=== PATIENT | female | born 1970 | race Caucasian/White ===

== ENCOUNTER 2021-01-18 12:12 | Outpatient (CLI) | payer OTHER, SELFPAY ==
--- NOTE | ~2021-01-18 | MR_ITS ---
EXAMINATION: MR shoulder RT wo con DATE: 01/18/2021 12:59 INDICATION: Right shoulder pain TECHNIQUE: Magnetic resonance imaging (MRI) of the right shoulder was performed without intravenous c ontrast. Sequences included axial PD-weighted FS FSE, coronal oblique PD-weighted FS FSE, coronal obl ique T2-weighted FS FSE, sagittal PD-weighted FS FSE, and sagittal T1-weighted SE. COMPARISON: None. FINDINGS: Coracoacromial arch: The acromion undersurface is minimally curved in morphology (type I-II). Is postoperative changes wit h multiple foci of susceptibility artifact along the acromion and the lateral deltoid muscle suggesti ng possible acromioplasty. There has also been a distal right clavicle resection. Rotator cuff: There are suture anchors along the greater tuberosity associated with likely suture anchor tracks for prior rotator cuff repair along the footplates of the supraspinatus and infraspinatus tendons. Mild to moderate tendinopathy of the distal supraspinatus and infraspinatus tendons. There is attenuation of the conjoined portion of the tendon consistent with partial tear or potentially repaired tear. No discrete tear margin or fluid signal intensity tear defect. The teres minor tendon is normal. Mild hillman bscapularis tendinopathy with attenuation distal tendon consistent with partial thickness tear but wi thout discrete articular bursal sided tear defect. Mild to moderate fatty atrophy of the subscapulari s muscle belly. Biceps tendon, glenoid labrum and glenohumeral cartilage: Complete tear of the long head biceps tendon with severe tendinopathy and fraying extending 2 cm dist ally from the distal tear margin which is retracted below the level of the intertubercular groove. Th e frayed proximal tear margin is located along side the anterosuperior labrum at the rotator cuff int erval. Small shallow tear along the articular side of the 9:00-10:00 position of the posterior labrum . Remainder of the labrum is normal. Mild partial-thickness cartilage with minimal chondral surface r egularity at the humeral head. Cartilage is relatively preserved. Fluid: Physiologic amount of fluid in the glenohumeral joint and biceps tendon sheath. No loose osteochondra l bodies. Small amount of fluid in the subacromial/subdeltoid bursa consistent with mild bursitis. Bones: Bone alignment is normal. Normal marrow signal with no fracture or pathologic marrow replacing proces s. IMPRESSION: 1. Postoperative change of prior rotator cuff repair, distal clavicle resection and possible acromiop lasty. 2. Small region of attenuation of the conjoined portion of the distal supraspinatus and more diffuse attenuation of the distal subscapularis tendon, both consistent with partial tears or potentially rep aired tears. No discrete fluid signal intensity tear defect or frankly discontiguous torn tendon vicente ins appreciated. 3. Full-thickness tear of the long head biceps tendon with severe tendinopathy and fraying of the dis lauren retracted tear margin. 4. Mild glenohumeral osteoarthritis with small partial-thickness tear at the posterior glenoid labrum . 5. Mild subacromial/subdeltoid bursitis. Reviewed, dictated and finalized at location A. IMPRESSION: 1. Postoperative change of prior rotator cuff repair, distal clavicle resection and possible acromioplasty. 2. Small region of attenuation of the conjoined portion of the distal supraspin atus and more diffuse attenuation of the distal subscapularis tendon, both cons istent with partial tears or potentially repaired tears. No discrete fluid sign al intensity tear defect or frankly discontiguous torn tendon margins appreciat ed. 3. Full-thickness tear of the long head biceps tendon with severe tendinopathy and fraying of th
== END 2021-01-18 12:13 ==
PROVIDERS: PCP Family Medicine; Visit Provider Orthopaedic Surgery
DX: M75.51 Bursitis of right shoulder (principal); M19.011 Primary osteoarthritis, right shoulder
CPT/HCPCS: 73221

== ENCOUNTER 2021-02-25 02:16 | Day surgery (SDC) | payer OTHER, SELFPAY ==
[2021-02-15 15:07] VITALS: BMI 20.7
[2021-02-25] VITALS (8 sets, daily range): BP systolic 99–123; BP diastolic 68–78; PULSE 67–106; RESP 14–18; TEMP 36.1–36.7; O2SAT 99–100
--- NOTE | 2021-02-25 08:25 | WPDANESPNB ---
Anes - Peripheral Nerve Block Date/Time: 02/25/21 08:25 I have discussed with the patient/family/POA the placement of a peripheral nerve block for post-operative pain management, including associated risks, benefits, complications, and side effects. Alternative methods of post-operative analgesia were detailed. Questions were solicited and answers provided to the satisfaction of the patient/family/POA. Time-Out: A pre-procedural Time-Out was completed immediately before starting the procedure and confirmed: Patient Identification, Site, Procedure, Patient Position and the Availability of Requisite Equipment. Clinical Indications: Acute post-operative pain management requested by the operative surgeon. Nerve Block Insertion Note Anes-nerve block: supraclavicular right Patient position: supine Skin prep: chlorhexidine Needle: 22 gauge, stimulating, insulated echogenic needle. Needle length: 80 mm Technique: ultrasound (in plane) Injectate: bupivacaine 0.5% with epi 5 mcg/ml (20cc) Observations: tolerated well Complications: none Procedure start time:: 1230 Procedure end time:: 123
--- NOTE | 2021-02-25 08:25 | WPDANESEPPF ---
Anes - Initial Pre Proc Eval Procedure: Operation Date: 02/25/21 13:00 Proposed Procedures p Right Shoulder Arthroscopy with Decompression Proceed as Indicated - Sanchez Goel MD Date/Time: 02/25/21 08:25 Surgeon: Sanchez Goel MD Pre Op Diagnosis: right shoulder pain impingement Patient Data Age: 50 Gender: F Height: 1.52 m Weight: 48.08 kg Allergies Allergy/AdvReac Type Severity Reaction Status Date / Time No Known Allergies Allergy Verified 02/15/21 15:05 Home Medications Medication Instructions Recorded Confirmed Type alprazolam 0.5 mg tablet 0.5 mg PO DAILY PRN 09/23/19 02/25/21 History adalimumab [Humira Pen] 40 mg SUBCUT ONCE 02/15/21 02/25/21 History Patient hx anesthesia problems: none Family hx anesthesia problems: none Results Review: All pre-operative results and documents have been reviewed as part of the pre-operative evaluation. [facility] Past Medical History Medical History (Updated 02/25/21 @ 08:27 by Juan Levine MD) Arthritis Crohn's disease of colon Subacromial impingement of right shoulder Tobacco abuse Surgical History Surgical History H/O shoulder surgery left shoulder 09/09/18 History of repair of right rotator cuff Family History Family History Father Acute myocardial infarction Social History Social History Smoking packs per day: 0.5 Smoking cigarettes per day: 10.0 Years smoked: 10 Smoking pack-years: 5.00 Smoking status: Current every day smoker Tobacco type: cigarettes Alcohol intake: never Substance use: never Substance use type: does not use Living arrangements: with family Spiritual care concerns: No Anes - Eval Final PreProcedure Day of Procedure 02/25/21 08:25 Patient weight: normal Heart: regular rate and rhythm Lungs: clear to auscultation and normal air movement Airway: Mallampati scale class II Neurological: alert and oriented Last oral intake: >/= 8 hours ASA classification: III Emergent: no Anesthetic plan: proceed Anesthesia type and monitoring: general ETT Results Review: All pre-operative results and documents have been reviewed as part of the pre-operative evaluation. Informed Consent: The patient's anesthetic plan and its attendant risks and benefits were discussed with the patient/family/POA. Questions were solicited and answers provided to the satisfaction of the patient/family/POA.
[2021-02-25] MEDS: ACETAMINOPHEN 500 MG TABLET 1000 MG PO (11:22)
[2021-02-25] MEDS: LACTATED RINGERS 1,000 ML 30 ML IV CONT ×2 (11:28→14:10)
[2021-02-25] MEDS: KETOROLAC 15 MG/ML VIAL (*BKC) IV PUSH (11:33)
--- NOTE | 2021-02-25 12:29 | WPDHPUPDATE1 ---
History and Physical Update Update Date/Time: 02/25/21 12:29 History and Physical has been reviewed, including an updated exam of the patient. There are NO changes in the patient's condition. Risks, benefits, and alternatives have been discussed and questions answered. Patient agrees to proceed with procedure.
[2021-02-25] MEDS: ceFAZolin 2 GM/D5W 50 ML 2 GM/50 ML BAG IVPB (12:47)
[2021-02-25] MEDS: EPINEPHrine INJ 1 MG/10 ML SYRINGE XX (13:37)
--- NOTE | 2021-02-25 14:17 | P.OP_ITS ---
Procedure Note - Detailed Date of Procedure 02/25/21 Pre-op Diagnosis right shoulder pain impingement Post-op Diagnosis same Procedure Performed Right shoulder arthroscopy with intra-articular and subacromial debridement Surgeon Sanchez Goel MD [employer] Dayanna Wu Anesthesia general and regional Description of Procedure The patient was identified and proper site identified. In the preop holding area the anesthesia team performed a right upper extremity block. She was then taken to the operating, transferred to the OR table and after general anesthetic induction and intubation placed into the semi beach chair position in the usual manner for a right shoulder procedure. Her head was secured taking care to neither rotate or extend the head neck. The right upper extremity was prepped and draped free in the usual sterile fashion. 30 cc of 1:100,000 epinephrine and saline solution was injected into the subacromial space. 10 cc of 0.25% Marcaine and epinephrine solution was injected in the area of the portals. Posterior portal was established and under direct visualization anterior outflow was created. The articular cartilage of the humeral head and glenoid was in fairly decent shape. The cuff repair was inspected and noted to have a good attachment to the greater tuberosity. He has obvious tearing of the biceps with frayed stump sitting inside the shoulder joint. This was debrided back to allow for better visualization. Remainder of the cuff was in decent shape. Glenoid labrum was in fairly good shape. Minimal synovitis inside the shoulder joint. Next the scope equipment was removed from the shoulder and placed in the subacromial space. Lateral working portal was created. There was quite a bit of scar tissue which was debrided to allow for visualization. The undersurface acromion was cleared of debris and then a rasp used to debulk the lateral acromial spur. The cuff repair appeared to be intact from the bursal side as well. Arthrocare Wand was used for hemostasis. The entire surgical area was irrigated with saline solution and the equipment was removed. Portals were closed with three 0 nylon suture and sterile dressings applied. He tolerated the procedure well. She was awakened, extubated and taken to recovery area in stable condition. There were no known intraoperative complications. Estimated blood loss was negligible. She received perioperative antibiotics. Estimated Blood Loss 5 Drains No Packing No Pathology none sent Complications No immediate complications Condition stable Disposition PACU
== END 2021-02-25 16:00 | disposition home or self-care (01) ==
PROVIDERS: PCP Family Medicine; Visit Provider Orthopaedic Surgery
PROC: (CPT 29805; principal; 2021-02-25 13:00)
DX: M75.41 Impingement syndrome of right shoulder (principal); M19.90 Unspecified osteoarthritis, unspecified site; K50.90 Crohn's disease, unspecified, without complications; F17.210 Nicotine dependence, cigarettes, uncomplicated; M65.811 Other synovitis and tenosynovitis, right shoulder; G89.18 Other acute postprocedural pain
CPT/HCPCS: 29822; 64415; A4565; A9270; J0171; J0690; J1100; J1885; J2250; J2405; J2704; J2710; J3010; J7120

== ENCOUNTER → 2023-01-15 09:11 | Outpatient (CLI) | payer OTHER, SELFPAY ==
--- NOTE | ~2023-01-15 | CT_ITS ---
EXAMINATION: CT cervical spine wo con DATE: 01/15/2023 09:24 INDICATION: Cervical myelopathy. TECHNIQUE: Computed tomography (CT) of the cervical spine was performed without intravenous contrast. Automated exposure control and iterative reconstruction technique were employed. The dose-length pro duct was 85.01 mGy-cm. COMPARISON: None FINDINGS: There is mild scarring at the lung apices. There is 4 degrees dextrocurvature of cervical s pine. There is kyphosis of cervical spine. There is 2 mm anterolisthesis of C3 on C4 and 2 mm retroli sthesis of C6 on C7. Vertebral body heights are normal. There is moderately decreased disc height at C4-C5 and C5-C6 and severely decreased disc height at C6-C7. The following disc levels are specifical ly discussed: C2-C3: There is no uncovertebral joint osteoarthritis. There is ankylosis of the facet joints with mi ld hypertrophy. There is no neural foraminal stenosis. There is no central canal stenosis. C3-C4: There is mild bilateral uncovertebral joint osteoarthritis. There is severe bilateral facet jenny int osteoarthritis. There is mild right neural foraminal stenosis. There is mild central canal stenos is. C4-C5: There is moderate right and severe left uncovertebral joint osteoarthritis. There is severe bi lateral facet joint osteoarthritis. There is mild right and moderate left neural foraminal stenosis. There is mild central canal stenosis. C5-C6: There is severe right and moderate left uncovertebral joint osteoarthritis. There is severe bi lateral facet joint osteoarthritis. There is mild bilateral neural foraminal stenosis. There is mild central canal stenosis. C6-C7: There is severe bilateral uncovertebral joint osteoarthritis. There is moderate right and mild left facet joint osteoarthritis. There is mild bilateral neural foraminal stenosis. There is mild ce ntral canal stenosis. C7-T1: There is no uncovertebral joint osteoarthritis. There is severe bilateral facet joint osteoart hritis. There is mild bilateral neural foraminal stenosis. There is no central canal stenosis. IMPRESSION: 1. Severe cervical spondylosis. Reviewed, dictated and finalized at location A.
== END ==
PROVIDERS: PCP Family Medicine; Visit Provider Neurological Surgery
DX: G95.9 Disease of spinal cord, unspecified (principal); M47.892 Other spondylosis, cervical region
CPT/HCPCS: 72125

== ENCOUNTER 2024-10-11 15:28 | Outpatient (CLI) | payer BC, SELFPAY ==
--- NOTE | ~2024-10-11 | MM_ITS ---
EXAMINATION: MM screening [facility] BI w karina HISTORY: Screening TECHNIQUE: Craniocaudal and mediolateral oblique 3-D tomosynthesis images were obtained and synthetic 2-D images were generated. CAD analysis was submitted and interpreted. COMPARISON: No prior studies for comparison. BREAST PARENCHYMAL COMPOSITION: Not dense: There are scattered areas of fibroglandular density. FINDINGS: There is a mass in the periareolar location of the right breast laterally. There is also a mass in the lower inner quadrant of the right breast, posterior third. There is no mammographic evide nce for malignancy in the left breast. IMPRESSION: 1. Right breast masses. 2. Additional mammographic views and possible breast ultrasound are recommended. BI-RADS Category 0: Incomplete: Needs additional imaging evaluation. Reviewed, dictated and finalized at location B. IMPRESSION: 1. Right breast masses. 2. Additional mammographic views and possible breast ultrasound are recommended . BI-RADS Category 0: Incomplete: Needs additional imaging evaluation.
--- OUTSIDE RECORDS SUMMARY | 2024-10-11 16:53 | XMS_ITS | Data Portability ---
Author Organization [place] [facility], Main Office Address [address] [place] [address] Care Team Providers Care Card Painter Name Role Phone MARCELL MELENDEZ Primary Care Provider [phone] MARCELL MELENDEZ Referring Provider [phone] DELLA CONNELLY Employee Relations Specialist [phone] VERO GARDINER Primary Care Provider [phone] VERO GARDINER Referring Provider [phone] Assessment Encounter Date Assessment Date Assessment LastModified by Organization Details LastModified Time 03/21/2024 03/21/2024 The patient has a nondisplaced fracture through the distal portion of the lateral malleolus of the right ankle. Talked about treatment options today in detail I have recommended a course of immobilization and protection with a cam walker boot. She can take the boot off several times a day to work on gentle range of motion. When she feels comfortable she can bear full weight on it but she should not overdo it. She will work on swelling control with ice and elevation when necessary. She does cleaning for living I have advised her she really needs to try to minimize how much she does with her ankle for now in terms of weight-bearing if she has a sit-down type duty she can do at work we will get her a note for that otherwise she should be off work until she is getting some healing. It has been 1 week since her injury I will see her in 2 weeks at that point she will be 3 weeks status post injury. The patient voiced understanding and agreed with the above plan she was fitted with a cam walker boot today in the office for her best comfort and support. She will call for any further problems difficulties or questions. She was also given tramadol 50 mg 1 tablet every 8 hours as needed for severe pain she states she has been using it at night to help her sleep and takes meloxicam as well for the throbbing and aching during the day. The patient will call for any further problems difficulties or questions this should heal uneventfully as long as she protects it and wears a cam walker boot full-time when she is up and about. Not available 03/21/2024 11:34:44 04/07/2024 04/07/2024 The patient has a healing fracture of the distal tip of the lateral malleolus right ankle. Today's x-rays show good alignment and early healing. She is comfortable with her exam today and with ambulation and range of motion. She is going to continue with the cam walker boot at that point she will be about 5-1/2 weeks status post injury when I see her next. I will see her back in 2 weeks for final x-rays we have given her a lace-up ankle brace to wear, this was fitted for her best comfort and support today in the office. She is going to wear the cam walker boot for another 1-2 weeks if she is feeling comfortable she can convert to the lace-up ankle brace. She will continue with work restrictions for 2 more weeks as long as she is feeling well she can return to work full duty in 2 weeks. She is going to work on range of motion and gentle strengthening on her own at home she is doing very well does not appear to need any physical therapy. She voiced understanding and agree with the above plan she will call for any further problems difficulties or questions. Not available 04/07/2024 16:04:49 04/21/2024 04/21/2024 The patient has a healed fracture of the distal tip of the lateral malleolus of the right ankle. She is doing very well asymptomatic now and has returned to work full duty. Her final x-rays today show excellent healing she does have some healing callus formation that has occupied the lateral distal portion of the ankle mortise which could result in some impingement type symptoms but with extremes of motion on exam today she has no pain or discomfort whatsoever. She is happy with the treatment results and is pain-free. X-rays look good today. For now she can be dismissed she will wean back in to her normal activity slowly if she has any further problems difficulties or questions she is instructed to call she voiced understanding and agreed with the above plan. Not available 04/21/2024 16:00:56 Plan of Treatment Reminders Order Date Submit Date Provider Last Modified By Organization Details Last Modified Time Details Appointments None recorded. Lab CMP, serum or plasma 2023 [facility], [address], [address], [place], [address], 4 08:11:35 CBC w/ auto diff 2023 [facility], [address] [facility] [address] [facility] [address], [address], [place], [address], 4 08:11:34 lipid panel, serum 2023 024 [facility], [address], [address], [place], [address], 4 08:11:36 HbA1c (hemoglobin A1c), blood 2023 024 [facility], [address], [address], [place], [address], 4 08:11:37 TSH + free T4, serum 2023 [facility], [address], [place], [address], 4 08:11:31 vitamin D, 25-hydroxy, total, serum 2023 024 [facility], [address], [address], [place], [address], 4 08:11:38 Referral orthopedic surgeon referral - Please call patient to schedule an appointment . Thank you. 2023 BREA Sainz MD, [address], [place], [address], 4 11:37:21 Procedures None recorded. Surgeries None recorded. Imaging XR, ankle 2023 024 [email or web address] [facility], [address], [place], [address], 4 16:27:19 XR, ankle 2023 024 [facility], [address], [place], [address], 4 16:17:43 MAMMO, screening, digital, bilateral [address] (Mammography) , [address] [address], [place], [address], 4 09:41:07 MAMMO, screening, bilateral [address] [facility], [address] , [place], [address], 3 12:18:06 Medication Orders tramadol 50 mg tablet 2023 024 [id number], [address], [place], [id number], 4 11:35:36 montelukast 10 mg tablet [address] [id number], [address], [place], [id number], 4 16:26:40 alprazolam 0.5 mg tablet 2023 024 [facility] #[id number], [address], [place], [id number], 16:26:40 Patient TargetsNo targets recorded. Patient InstructionsNo instructions recorded. Reason for Referral Orthopedic Surgeon Referral for Closed fracture of ankle Please call patient to schedule an appointment. Thank you. Referring Physician: Marcell Melendez, [facility] Medicine, Encounter Date: 2024 Results Created Date Observation Date Name Description Value Unit Range Abnormal Flag Note LastModifiedBy Organization Detail LastModifiedTime 03/19/2003/20/2024 TSH+F REE T4 TSH 2.740 uIU/m L 0.450- 4.500 normal Not Available [facility] [address] [place], [address], 03/20/2024 08:11:31 03/19/20 24 03/20/2024 TSH+F REE T4 T4,free(dire ct) 1.16 NG/dL 0.82-1 .77 normal Not Available [facility] [address] [place], [address], 03/20/2024 08:11:31 03/19/20 24 03/20/2024 CBC WITH DIFFE RENTI AL/PL ATELE T WBC 5.1 x10e3 /uL 3.4-10 .8 normal Not Available [facility] [address] [place], [address], 03/20/2024 08:11:34 03/19/20 24 03/20/2024 CBC WITH DIFFE RENTI AL/PL ATELE T RBC 4.18 x10e6 /uL 3.77-5 .28 normal Not Available [facility] [address] [place], [address], 03/20/2024 08:11:34 03/19/20 24 03/20/2024 CBC WITH DIFFE RENTI AL/PL ATELE T hemoglobin 13.1 g/dL 11.1-1 5.9 normal Not Available [facility] [address] [facility], [place], [address], 03/20/2024 08:11:34 03/19/20 24 03/20/2024 CBC WITH DIFFE RENTI AL/PL ATELE T hematocrit 39.8 % 34.0-4 6.6 normal Not Available [facility] [address] [facility], [place], [address], 03/20/2024 08:11:34 03/19/20 24 03/20/2024 CBC WITH DIFFE RENTI AL/PL ATELE T MCV 95 fL 79-97 normal Not Available [facility] [address] [facility], [place], [address], 03/20/2024 08:11:34 03/19/20 24 03/20/2024 CBC WITH DIFFE RENTI AL/PL ATELE T MCH 31.3 pg 26.6-3 3.0 normal Not Available [facility] [address] [place], [address], 03/20/2024 08:11:34 03/19/20 24 03/20/2024 CBC WITH DIFFE RENTI AL/PL ATELE T MCHC 32.9 g/dL 31.5-3 5.7 normal Not Available [facility] [address] [place], [address], 03/20/2024 08:11:34 03/19/20 24 03/20/2024 CBC WITH DIFFE RENTI AL/PL ATELE T RDW 13.0 % 11.7-1 5.4 Not Available [facility] [address] [facility], [place], [address], 03/20/2024 08:11:34 03/19/20 24 03/20/2024 CBC WITH DIFFE RENTI AL/PL ATELE T platelets 318 x10e3 /uL 150-45 0 normal Not Available [facility] [address] [facility], [place], [address], 03/20/2024 08:11:34 03/19/20 24 03/20/2024 CBC WITH DIFFE RENTI AL/PL ATELE T neutrophils 54 % not estab. normal Not Available [facility] [address] [facility], [place], [address], 03/20/2024 08:11:34 03/19/20 24 03/20/2024 CBC WITH DIFFE RENTI AL/PL ATELE T lymphs 32 % not estab. normal Not Available [facility] [address] [facility], [place], [address], 03/20/2024 08:11:34 03/19/20 24 03/20/2024 CBC WITH DIFFE RENTI AL/PL ATELE T monocytes 7 % not estab. normal Not Available [facility] [address] [facility], [place], [address], 03/20/2024 08:11:34 03/19/20 24 03/20/2024 CBC WITH DIFFE RENTI AL/PL ATELE T eos 4 % not estab. normal Not Available [facility] [address] [facility], [place], [address], 03/20/2024 08:11:34 03/19/20 24 03/20/2024 CBC WITH DIFFE RENTI AL/PL ATELE T basos 1 % not estab. normal Not Available [facility] [address] [facility], [place], [address], 03/20/2024 08:11:34 03/19/20 24 03/20/2024 CBC WITH DIFFE RENTI AL/PL ATELE T immature cells COMPUTER SECURITY SPECIALIST Not Available [facility] [address] [facility], [place], [address], 03/20/2024 08:11:34 03/19/20 24 03/20/2024 CBC WITH DIFFE RENTI AL/PL ATELE T neutrophils (absolute) 2.8 x10e3 /uL 1.4-7. 0 normal Not Available [facility] [address] [place], [address], 03/20/2024 08:11:34 03/19/20 24 03/20/2024 CBC WITH DIFFE RENTI AL/PL ATELE T lymphs (absolute) 1.6 x10e3 /uL 0.7-3. 1 normal Not Available [facility] [address] [place], [address], 03/20/2024 08:11:34 03/19/20 24 03/20/2024 CBC WITH DIFFE RENTI AL/PL ATELE T monocytes(ab solute) 0.4 x10e3 /uL 0.1-0. 9 normal Not Available [facility] [address] [place], [address], 03/20/2024 08:11:34 03/19/20 24 03/20/2024 CBC WITH DIFFE RENTI AL/PL ATELE T eos (absolute) 0.2 x10e3 /uL 0.0-0. 4 normal Not Available [facility] [address] [place], [address], 03/20/2024 08:11:34 03/19/20 24 03/20/2024 CBC WITH DIFFE RENTI AL/PL ATELE T baso (absolute) 0.0 x10e3 /uL 0.0-0. 2 normal Not Available [facility] [address] [place], [address], 03/20/2024 08:11:34 03/19/20 24 03/20/2024 CBC WITH DIFFE RENTI AL/PL ATELE T immature granulocytes 2 % not estab. Not Available [facility] [address], [place], [address], 03/20/2024 08:11:34 03/19/20 24 03/20/2024 CBC WITH DIFFE RENTI AL/PL ATELE T immature grans (abs) 0.1 x10e3 /uL 0.0-0. 1 Not Available [facility] [address] [facility], [place], [address], 03/20/2024 08:11:34 03/19/20 24 03/20/2024 CBC WITH DIFFE RENTI AL/PL ATELE T NRBC COMPUTER SECURITY SPECIALIST Not Available [facility] [address] [facility], [place], [address], 03/20/2024 08:11:34 03/19/20 24 03/20/2024 CBC WITH DIFFE RENTI AL/PL ATELE T hematology comments: COMPUTER SECURITY SPECIALIST Not Available [facility] [address] [facility], [place], [address], 03/20/2024 08:11:34 03/19/20 24 03/20/2024 COMP. METAB OLIC PANEL (14) glucose 92 mg/dL 70-99 normal Not Available [facility] [address] [facility], [place], [address], 03/20/2024 08:11:35 03/19/20 24 03/20/2024 COMP. METAB OLIC PANEL (14) BUN 17 mg/dL 6-24 normal Not Available [facility] [address] [facility], [place], [address], 03/20/2024 08:11:35 03/19/20 24 03/20/2024 COMP. METAB OLIC PANEL (14) creatinine 0.83 mg/dL 0.57-1 .00 normal Not Available [facility] [address] [facility], [place], [address], 03/20/2024 08:11:35 03/19/20 24 03/20/2024 COMP. METAB OLIC PANEL (14) eGFR 83 mL/mi n/1.7 3 >59 normal Not Available [facility] [address] [facility], [place], [address], 03/20/2024 08:11:35 03/19/20 24 03/20/2024 COMP. METAB OLIC PANEL (14) BUN/creatini ne ratio 20 9-23 normal Not Available [facility] [address] [facility], [place], [address], 03/20/2024 08:11:35 03/19/20 24 03/20/2024 COMP. METAB OLIC PANEL (14) sodium 141 mmol/ L 134-14 4 normal Not Available [facility] [address] [facility], [place], [address], 03/20/2024 08:11:35 03/19/20 24 03/20/2024 COMP. METAB OLIC PANEL (14) potassium 4.3 mmol/ L 3.5-5. 2 normal Not Available [facility] [address] [facility], [place], [address], 03/20/2024 08:11:35 03/19/20 24 03/20/2024 COMP. METAB OLIC PANEL (14) chloride 106 mmol/ L 96-106 normal Not Available [facility] [address] [facility], [place], [address], 03/20/2024 08:11:35 03/19/20 24 03/20/2024 COMP. METAB OLIC PANEL (14) carbon dioxide, total 25 mmol/ L 20-29 normal Not Available [facility] [address] [facility], [place], [address], 03/20/2024 08:11:35 03/19/20 24 03/20/2024 COMP. METAB OLIC PANEL (14) calcium 8.6 mg/dL 8.7-10 .2 below low normal Not Available [facility] [address] [facility], [place], [address], 03/20/2024 08:11:35 03/19/20 24 03/20/2024 COMP. METAB OLIC PANEL (14) protein, total 5.9 g/dL 6.0-8. 5 below low normal Not Available [facility] [address] [facility], [place], [address], 03/20/2024 08:11:35 03/19/20 24 03/20/2024 COMP. METAB OLIC PANEL (14) albumin 3.6 g/dL 3.8-4. 9 below low normal Not Available [facility] [address] [facility] [place], [address], 03/20/2024 08:11:35 03/19/20 24 03/20/2024 COMP. METAB OLIC PANEL (14) globulin, total 2.3 g/dL 1.5-4. 5 Not Available [facility] [address] [facility], [place], [address], 03/20/2024 08:11:35 03/19/20 24 03/20/2024 COMP. METAB OLIC PANEL (14) bilirubin, total <0.2 mg/dL 0.0-1. 2 Not Available [facility] [address] [facility] [place], [address], 03/20/2024 08:11:35 03/19/20 24 03/20/2024 COMP. METAB OLIC PANEL (14) alkaline phosphatase 106 IU/L 44-121 normal Not Available [facility] [address] [facility], [place], [address], 03/20/2024 08:11:35 03/19/20 24 03/20/2024 COMP. METAB OLIC PANEL (14) AST (SGOT) 15 IU/L 0-40 normal Not Available [facility] [address] [facility] [place], [address], 03/20/2024 08:11:35 03/19/20 24 03/20/2024 COMP. METAB OLIC PANEL (14) ALT (SGPT) 16 IU/L 0-32 normal Not Available [facility] [address] [facility] [place], [address], 03/20/2024 08:11:35 03/19/20 24 03/20/2024 LIPID PANEL cholesterol, total 176 mg/dL 100-19 9 normal Not Available [facility] [address] [facility] [place], [address], 03/20/2024 08:11:36 03/19/20 24 03/20/2024 LIPID PANEL triglyceride s 194 mg/dL 0-149 above high normal Not Available [facility] [address] [facility], [place], [address], 03/20/2024 08:11:36 03/19/20 24 03/20/2024 LIPID PANEL HDL cholesterol 54 mg/dL >39 normal Not Available [facility] [address] [facility] [place], [address], 03/20/2024 08:11:36 03/19/20 24 03/20/2024 LIPID PANEL VLDL cholesterol chiara 33 mg/dL 5-40 Not Available [facility] [address] [facility] [place], [address], 03/20/2024 08:11:36 03/19/20 24 03/20/2024 LIPID PANEL LDL chol calc ([facility]) 89 mg/dL 0-99 Not Available [facility] [address] [place], [address], 03/20/2024 08:11:36 03/19/20 24 03/20/2024 LIPID PANEL LDL calc comment: COMPUTER SECURITY SPECIALIST Not Available [facility] [address] [facility], [place], [address], 03/20/2024 08:11:36 03/19/20 24 03/20/2024 HEMOG LOBIN A1C hemoglobin A1C 5.7 % 4.8-5. 6 above high normal Predi abete s: 5.7 - 6.4 Diabe renate: >6.4 Glyce chris contr ol for adult s with diabe renate: <7.0 Not Available [facility] [address] [facility], [place], [address], 03/20/2024 08:11:37 03/19/20 24 03/20/2024 VITAM IN D, 25-HY DROXY vitamin D, 25-hydroxy 16.3 NG/mL 30.0-1 00.0 below low normal Vitam in D defic iency has been defin ed by the Insti tute of Medic ine and an Endoc rine Socie ty pract ice guide line as a level of serum 25-OH vitam in D less than 20 ng/mL (1,2) . The Endoc rine Socie ty went on to furth er defin e vitam in D insuf ficie ncy as a level betwe en 21 and 29 ng/mL (2). 1. IOM (Inst itute of Medic ine). 2009. Dieta ry refer ence travis es for calci um and D. Janice robles [place]: The Natio nal [facility] Press . 2. Alireza yao MF, Syuapa coronado [place], Teodoro off-F errar i LICEA, et al. Evalu ation , treat ment, and preve ntion of vitam in D defic iency : an Endoc rine Socie ty clini chiara pract ice guide line. JCEM. 2010; 96(7) :1911 -30. Not Available [facility] [address] [facility], [place], [address], 03/20/2024 08:11:38 12/08/19 23 MRI, cervi chiara spine , w/o contr ast [facility] [address]ADERA RANCH [address] [place] [address] Patingoc t Name: RICARDO VARGAS Access ion #: [id number] Sex: F : 1969 0 Dictat ed By: Radha Dahl Attend ing Physic julee: ELKHAT IB, RUNDA Orderi ng Physic julee: ELKHAT IB, RUNDA Exam Date: 2022 12:18 PM Exam Name: MRI C SPINE WO Admitt ing Diagno sis(es ): EXAMIN ATION: MRI cervic al spine withou t contra st CLINIC AL INDICA TION: Chroni c pain COMPAR KENNEDY: None. TECHNI QUE: Multip lanar, multi- sequen ce MRI of the cervic al spine was perfor med. FINDIN GS: Arsen htenin g of the normal cervic al lordos is, withou t listhe sis. No acute or aggres sive marrow signal change s. Normal cord signal . There is multil evel degene rative disc diseas e in the form of desicc ation and height loss, most pronou nced at C6-7. Normal parasp inal soft tissue . The lung apices are clear. Level by Level Analys is: C2-3: No disc bulge. No signif icant neurof oramin al stenos is. No signif icant centra l canal stenos is. C3-4: Modera te right and mild left neurof oramin al stenos is due to bilate ral uncove rtebra l hypert rophy and right facet arthro chanel. Normal centra l canal. Page 1 [facility] [address] [facility] [place] [id number] Patingoc t Name: RICARDO VARGAS Access ion #: [id number] Sex: F : 1969 0 Dictat ed By: Radha Dahl Attend ing Physic julee: RUNDA, ELKHAT IB Orderi ng Physic julee: RHIANNON IB, RUNDA Exam Date: 2022 12:18 PM Exam Name: MRI C SPINE WO Admitt ing Diagno sis(es ): C4-5: Disc osteop hyte comple x with bilate ral uncove rtebra l hypert rophy. Severe bilate ral neurof oramin al stenos is. Modera te centra l canal stenos is. C5-6: Disc osteop hyte comple x with bilate ral uncove rtebra l hypert rophy. Modera te bilate ral neurof oramin al stenos is. Mild centra l canal stenos is. C6-7: Disc osteop hyte comple x with bilate ral uncove rtebra l hypert rophy. Mild ligame ntum flavum hypert rophy. Severe bilate ral neurof oramin al stenos is. Modera te centra l canal stenos is. C7-T1: No disc bulge. No signif icant neurof oramin al stenos is. No signif icant centra l canal stenos is. IMPRES JIMI: 1. Modera te to severe degene rative spondy losis. Modera te centra l canal stenos is is noted at C4-5 and C6-7. Multil evel severe neurof oramin al stenos is. Electr onical ly Signed by: Radha Dahl at 2022 18:27: 43 PM Electr onical ly Signed by: Radha Dahl at 2022 18:27: 43 PM Page 2 [email or web address] [address] [place], [address], 12/08/2022 14:19:19 12/08/1912/05/2022 MRI, cervi chiara spine , w/o contr ast No observ ation record ed. [address] [facility] [address] [place], [address], 12/08/2022 08:48:57 01/16/20 23 01/15/2023 MRI, cervi chiara spine , w/o contr ast No observ ation record ed. [email or web address] [facility] [address] [place] [address] [place], [address], 01/15/2023 20:40:01 01/17/20 23 01/15/2023 MRI, cervi chiara spine , w/o contr ast No observ ation record ed. [email or web address] [facility] [address] [place] [address] , [place], [address], 01/19/2023 08:45:20 03/18/20 24 03/13/2024 XR, ankle , 3 or more view No observ ation record ed. [email or web address] Not Available 03/04 11:10:45 04/07/20 24 XR, ankle No observ ation record ed. [facility] [address], [place], [address], 04/07/2024 16:11:27 04/21/20 24 XR, ankle No observ ation record ed. [facility] [address], [place], [address], 04/21/2024 16:02:55 10/12/19 25 10/11/2024 MAMMO , scree eligio, digit al, bilat eral No observ ation record ed. [facility] [address], [place], [address], 10/11/2024 17:44:41 Result Notes None recorded. Problems Name Problem SNOMED Code Status Onset Date Resolution Date Notes Provider Name and Address Organization Details Recorded Time Cobalamin deficiency 608857302 Active Not Available [facility] 3 03:05:41 Crohn's disease 57467138 Active Not Available [facility] 3 03:05:41 Depressive disorder 07263941 Active Not Available [facility] 3 03:05:42 Sinusitis 49974742 Active Not Available [facility] 3 03:05:42 Gastrointe stinal Crohn's disease 867884454 Active Not Available [facility] 3 03:05:42 Dizziness 594643604 Active Not Available [facility] 3 03:05:42 Onychomyco sis 836295715 Active Not Available [facility] 3 03:05:42 Gastritis 0720553 Active Not Available [facility] 3 03:05:42 Anxiety 51219309 Active Not Available [facility] 3 03:05:42 Upper respirator y infection 34188688 Active Not Available [facility] 3 03:05:42 Female stress incontinen ce 71197240 Active Not Available [facility] 3 03:05:42 Diarrhea 47444329 Active Not Available [facility] 3 03:05:42 Pernicious anemia 64111556 Active Not Available [facility] 3 03:05:42 Spinal stenosis in cervical region 88624295 Active 2022 Not Available [facility] 3 03:05:42 Pain of right wrist 1240964469377 00 Active 2022 Not Available [facility] 3 03:05:41 Allergic rhinitis 58890701 Active 2022 Not Available [facility] 3 03:05:42 Skin irritation 983772438 Active 2022 Not Available [facility] 3 03:05:42 Chronic neck pain 1070815235155 Active 2022 Not Available [facility] 3 03:05:41 SARS-CoV-2 Active 2023 LATOYA Amaro [address], [address], [place], [address] , [place] [facility] 4 11:33:57 Screening mammograph y Active 2023 LATOYA Amaro [address], [address], [place], [address] , [place] [facility] [place] [facility] 4 15:59:37 Adult health examinatio n Active 2023 LATOYA Amaro [address], [address], [place], [address] , [facility] 4 16:07:44 Closed fracture of ankle 21371360 Active 2023 LATOYA Amaro [email or web address], [address], [place], [address] , [facility] 4 16:17:29 Pain of right ankle joint 6056512353820 9106 Active 2023 MÓNICA Mukherjee, [facility] 4 11:00:27 Closed fracture of lateral malleolus of right fibula 1433446700368 9104 Active 2023 LATOYA Martini [email or web address], [address], [place], [address] , [facility] 4 11:36:05 Closed fracture of lateral malleolus 39861560 Active 2023 LATOYA Martini [email or web address], [address], [place], [address] , [facility] 4 16:06:12 Vitamin D deficiency 21818160 Active 2023 LATOYA Amaro [email or web address], [address], [place], [address] , [facility] 4 12:28:40 Hypertrigl yceridemia 176996450 Active 2023 LATOYA Amaro [email or web address], [address], [place], [address] , [facility] 4 12:29:38 Streptococ chiara sore throat 15951511 Active 2024 RONEN Ochoa [email or web address], [place], [address] , [facility] 5 12:46:10 Problem Notes None recorded. Procedures Surgical History Date Name Laterality Status Provider Name and Address Organization Details Recorded Time 01/01/20 20 mammography completed Not Available [facility] 07/02/2022 07:38:42 12/25/19 18 sampling of cervix for Papanicolaou smear completed Not Available [facility] 07/02/2022 07:38:42 Carpal tunnel surgery completed Not Available [facility] 07/02/2022 07:38:42 Orthopedic Surgery completed Not Available [facility] 07/02/2022 07:38:42 Repair rotator cuff chronic completed Not Available [facility] 07/02/2022 07:38:42 Claviculectomy partial completed Not Available [facility] 07/02/2022 07:38:42 Tubal Ligation completed Not Available [facility] 07/02/2022 07:38:42 colonoscopy completed Not Available [facility] 07/02/2022 07:38:42 EGD completed Not Available [facility] 07/02/2022 07:38:42 Imaging Results None recorded. Procedure Notes None recorded. Medical Equipment None Reported. Allergies No known drug allergies Medications Name Sig Start Date Stop Date Status Note LastModified by Organization Details LastModified Time cyclobenzap rine 10 mg tablet 07/28 completed Not Available Not Available Not Available prednisone 10 mg tablet 4 tabs daily 3 days then 3 tabs x 3 simpson then 2 tabs x 3 days then 1 tab daily x 3 days then stop. active Not Available Not Available No t Available venlafaxine ER 75 mg capsule,ext ended release 24 hr Take 1 capsule every day by oral route. 11/29 completed Not Available Not Available Not Available clindamycin HCl 300 mg capsule TK 1 C PO Q 6 H 07/28 completed Not Available Not Available Not Available azithromyci n 250 mg tablet TK 2 TS PO AT ONCE TODAY THEN TK 1 T PO ONCE D FOR 4 DAYS 03/17 completed Not Available Not Available Not Available fluconazole 150 mg tablet Take 1 tablet every day by oral route for 1 day. active Not Available Not Available No t Available hydrocodone 5 mg-acetamin ophen 325 mg tablet TK 1 TO 2 TS PO Q 4 TO 6 H PRN 11/09 completed Not Available Not Available Not Available hydrocortis one 1 % topical ointment APPLY TOPICALLY TO THE AFFECTED AREA TWICE DAILY 03/21 completed Not Available Not Available Not Available prednisone 20 mg tablet TK 3 TS PO ONCE D FOR 3 DAYS 08/22 completed Not Available Not Available Not Available Tubersol 5 tub. unit/0.1 mL intradermal injection solution Inject 0.5 mL by intraderm al route. 08/22 completed Not Available Not Available Not Available dexamethaso ne 6 mg tablet TAKE 1 TABLET BY MOUTH EVERY DAY IN THE MORNING FOR 7 DAYS 03/17 completed Not Available Not Available Not Available azathioprin e 50 mg tablet TK 1 TS PO QD active Not Available Not Available No t Available ciprofloxac in 500 mg tablet active Not Available Not Available Not Available sulfamethox azole 800 mg-trimetho prim 160 mg tablet TAKE 1 TABLET BY MOUTH EVERY 12 HOURS 12/25 completed Not Available Not Available Not Available tramadol 50 mg tablet TAKE 1 TABLET BY MOUTH EVERY 6 TO 8 HOURS NEEDED active Not Available Not Available No t Available triamcinolo ne acetonide 0.1 % topical cream APPLY TOPICALLY TO THE AFFECTED AREA AT BEDTIME active Not Available Not Available No t Available Cholestyram ine Light 4 gram powder for suspension in a packet 08/22 completed Not Available Not Available Not Available fenofibrate micronized 134 mg capsule Take 1 capsule every day by oral route in the morning for 30 days. 2023 active Not Available Not Available Not Avai lable meloxicam 7.5 mg tablet Take 1 tablet every day by oral route. 2020 active Not Available Not Available Not Avai lable oxycodone-a cetaminophe n 5 mg-325 mg tablet TAKE 1 TABLET BY MOUTH EVERY 6 HOURS NEEDED FOR PAIN 12/30 completed Not Available Not Available Not Available terbinafine HCl 250 mg tablet TAKE 1 TABLET BY MOUTH EVERY DAY FOR 12 WEEKS active Not Available Not Available No t Available alprazolam 0.5 mg tablet active Not Available Not Available Not Available ceftriaxone 1 gram solution for injection Take 1 g every day by injection route for 1 day. 11/29 completed Not Available Not Available Not Available amoxicillin 875 mg tablet TK 1 T PO Q 12 H active Not Available Not Available No t Available famotidine 20 mg tablet 03/17 completed Not Available Not Available Not Available meclizine 25 mg tablet Take 1 tablet 3 times a day by oral route. active Not Available Not Available No t Available hydrocodone 7.5 mg-acetamin ophen 325 mg tablet TAKE 1 TABLET BY MOUTH EVERY 4 HOURS NEEDED FOR PAIN 11/29 completed Not Available Not Available Not Available cephalexin 500 mg capsule 07/28 completed Not Available Not Available Not Available erythromyci n 5 mg/gram (0.5 %) eye ointment APPLY A SMALL AMOUNT INTO AFFECTED EYE EVERY NIGHT AT BEDTIME 11/01 completed Not Available Not Available Not Available cyanocobala min (vit B-12) 1,000 mcg/mL injection solution Inject 1 mL every month by subcutane ous route. 03/17 completed Not Available Not Available Not Available tacrolimus 0.1 % topical ointment APPLY EXTERNALL Y TO THE AFFECTED AREA ON EYELIDS 1 TO 2 TIMES PER DAY WHEN FLARED 03/21 completed Not Available Not Available Not Available neomycin-po lymyxin-dex ameth 3.5 mg/mL-10,00 0 unit/mL-0.1 % eye drops INSTILL 1 DROP INTO BOTH EYES FOUR TIMES DAILY 11/01 completed Not Available Not Available Not Available tobramycin 0.3 % eye drops 11/10 completed Not Available Not Available Not Available nystatin-tr iamcinolone 100,000 unit/g-0.1 % topical cream active Not Available Not Available Not Available montelukast 10 mg tablet TAKE 1 TABLET BY MOUTH EVERY DAY active Not Available Not Available No t Available hydroxyzine HCl 25 mg tablet 03/17 completed Not Available Not Available Not Available budesonide DR - ER 3 mg capsule,del ayed,extend ed release TK 3 CS PO QD active Not Available Not Available No t Available methylpredn isolone 4 mg tablets in a dose pack USE DIRECTED 12/25 completed Not Available Not Available Not Available fluticasone propionate 50 mcg/actuati on nasal spray,suspe nsion 2 sprays each nostril daily 03/17 completed Not Available Not Available Not Available dicyclomine 10 mg capsule Take 1 capsule every day by oral route at bedtime. 03/17 completed Not Available Not Available Not Available loratadine 10 mg tablet Take 1 tablet every day by oral route as needed. 08/22 completed Not Available Not Available Not Available amoxicillin 875 mg-potassiu m clavulanate 125 mg tablet TAKE 1 TABLET BY MOUTH EVERY 12 HOURS active Not Available Not Available No t Available nabumetone 500 mg tablet TK 1 T PO BID 11/29 completed Not Available Not Available Not Available amoxicillin 500 mg-rowdyu m clavulanate 125 mg tablet TAKE 1 TABLET BY MOUTH TWICE DAILY FOR 5 DAYS 08/22 completed Not Available Not Available Not Available neomycin 3.5 mg/g-polymy debora B 10,000 unit/g-dexa meth 0.1 % eye oint APPLY SMALL AMOUNT TO THE EYELID THREE TIMES DAILY 12/30 completed Not Available Not Available Not Available Mononessa (28) 0.25 mg-35 mcg tablet TK 1 T PO QD 11/10 completed Not Available Not Available Not Available cyclobenzap rine 5 mg tablet Take 1 tablet 3 times a day by oral route as needed. 06/24 completed Not Available Not Available Not Available cholestyram ine (with sugar) 4 gram powder for susp in a packet active Not Available Not Available Not Available Prempro 0.3 mg-1.5 mg tablet Take 1 tablet every day by oral route. 08/22 completed Not Available Not Available Not Available BD Integra Syringe 3 mL 25 gauge x 5/8 U UTD Q MONTH WITH B-12 INJECTION S 03/29 completed Not Available Not Available Not Available ProAir HFA 90 mcg/actuati on aerosol inhaler Inhale 2 puffs every 6 hours by inhalatio n route as needed. 08/22 completed Not Available Not Available Not Available cholecalcif priyanka (vitamin D3) 50 mcg (2,000 unit) capsule Take 1 capsule every day by oral route as directed. 2023 active Not Available Not Available Not Avai lable Cimzia 400 mg/2 mL (200 mg/mL x 2) subcutaneou s syringe kit 12/30 completed Not Available Not Available Not Available Aerochamber Plus Flow-Vu USE DEVICE DIRECTED 03/21 completed Not Available Not Available Not Available Chantix Continuing Month Box 1 mg tablet Take 1 tablet twice a day by oral route. 07/28 completed Not Available Not Available Not Available Chantix Starting Month Box 0.5 mg (11)-1 mg (42) tablets in dose pack Take 1 tablet twice a day by oral route. active Not Available Not Available No t Available Virtussin AC 10 mg-100 mg/5 mL oral liquid TK 5 ML PO Q 4 H PRN COU 09/07 completed Not Available Not Available Not Available Jublia 10 % topical solution with applicator APPLY TO AFFECTED TOENAIL ONCE DAILY 11/10 completed Not Available Not Available Not Available Eucrisa 2 % topical ointment APPLY A THIN LAYER TO THE AFFECTED AREA(S) BY TOPICAL ROUTE 2 TIMES PER DAY 03/17 completed Not Available Not Available Not Available Humira(CF) Pen 40 mg/0.4 mL subcutaneou s kit INJECT 40MG SUBCUTANE OUSLY EVERY 2 WEEKS 03/17 completed Not Available Not Available Not Available Humira(CF) Pen Crohn's-Ulc Colitis-Hid Sup Strt 80 mg/0.8 mL subcut kt Inject 40 mg every 2 weeks by subcutane ous route in the morning for 30 days. active Not Available Not Available No t Available Flucelvax Quad 60 mcg (15 mcg x 4)/0.5 mL intramuscul ar susp TO BE ADMINISTE RED BY PHARMACIS T FOR IMMUNIZAT ION 03/09 completed Not Available Not Available Not Available Sutab 1.479-0.188 -0.225 gram tablet TAKE BY MOUTH DIRECTED 09/25 completed Not Available Not Available Not Available Paxlovid 300 mg (150 mg x 2)-100 mg tablets in a dose pack TK 2 NIRMATREL VIR TS AND 1 RITONAVIR T TOGETHER PO TWICE DAILY FOR 5 DAYS 03/17 completed Not Available Not Available Not Available Vitals Date Recorded Body height Body mass index (BMI) Body weight Body temperature Heart rate Oxygen saturation Oxygen saturation in Arterial blood by Pulse oximetry Systolic blood pressure Diastolic blood pressure Provider Name and Address Organization Details Last Updated DateTime 3 149.86 cm 20.8 kg/m2 55549.0 1 g 97.7 [degF] 76 /min 97 % 97 % 102 mm[Hg] 68 mm[Hg] Dayanna almanza, [place] [facility] 3 10:27:08 Date Recorded Body height Body mass index (BMI) Body weight Body temperature Heart rate Oxygen saturation Oxygen saturation in Arterial blood by Pulse oximetry Systolic blood pressure Diastolic blood pressure Provider Name and Address Organization Details Last Updated DateTime 149.86 cm 24.4 kg/m2 58865.6 8 g 97.9 [degF] 86 /min 98 % 98 % 110 mm[Hg] 84 mm[Hg] Daxa Rutledge RN [facility] 15:45:12 Date Recorded Body height Body mass index (BMI) Body weight Provider Name and Address Organization Details Last Updated DateTime 03/21/2024 149.86 cm 24.2 kg/m2 75340.08 g Mirna EspinalMÓNICA suárez [facility] 03/21/2024 10:57:10 Date Recorded Body height Body mass index (BMI) Body weight Provider Name and Address Organization Details Last Updated DateTime 04/07/2024 149.86 cm 24.4 kg/m2 72408.68 g Carol Soriano [facility] 04/07/2024 15:34:06 Date Recorded Body height Body mass index (BMI) Body weight Provider Name and Address Organization Details Last Updated DateTime 04/21/2024 149.86 cm 24.4 kg/m2 18507.68 g Mirna Espinaljose armando [employer] [facility] 04/21/2024 15:31:51 Social History Question Answer Notes LastModified by Organizat ion Details LastModified Time Tobacco Smoking Status Former Smoker Mirna MengMÓNICA suárez [facility] 03/21/2024 10:59:12 Do You Have An Advance Directive? No [id number] Information not available 07/02/2022 What Is Your Level Of Caffeine Consumption? Moderate [id number] Information not available 07/02/2022 How Much Tobacco Do You Chew? None [id number] Information not available 07/02/2022 In The 14 Days Before Symptom Onset, Have You Had Close Contact With A Laboratory-confirm ed COVID-19 While That Case Was Ill? No [id number] Information not available 07/02/2022 In The 14 Days Before Symptom Onset, Have You Had Close Contact With A Person Who Is Under Investigation For COVID-19 While That Person Was Ill? No [id number] Information not available 07/02/2022 What Type Of Diet Are You Following? REGULAR [id number] Information not available 07/02/2022 Which Illicit Or Recreational Drugs Have You Used? None [id number] Information not available 07/02/2022 What Was The Date Of Your Most Recent Tobacco Screening? 12/18/2017 [id number] Information not available 07/02/2022 How Much Tobacco Do You Smoke? 0.5 PPD [id number] Information not available 07/02/2022 Do You Use Sunscreen Routinely? No [id number] Information not available 07/02/2022 How Many Years Have You Smoked Tobacco? 30 Information not available 03/21/2024 Sex: Unknown Functional Status Question Answer Note LastModified by Organizat ion Details LastModified Time What is your level of alcohol consumption? Occasional Information not available 03/21/2024 Do you or have you ever used smokeless tobacco? Never used smokeless tobacco [id number] Information not available 07/02/2022 What is your occupation? [employer] [id number] Information not available 07/02/2022 Do you or have you ever used e-cigarettes or vape? Never used electronic cigarettes [id number] Information not available 07/02/2022 What is your exercise level? Occasional [id number] Information not available 07/02/2022 Mental Status None recorded. Family History Relationship Description Onset Age of this Age Resolved Age Notes LastModified by Organization Details LastModified Time Father Asthma [id number] Not available 07/02/2022 07:38:44 Sister Asthma [id number] Not available 07/02/2022 07:38:44 Brother Asthma [id number] Not available 07/02/2022 07:38:44 Medical History Condition Response ANXIETY DISORDER Y BOWEL PROBLEMS Y BACK / NECK PROBLEMS Y FEMALE PROBLEMS / INFECTIONS Y DEPRESSION (INCLUDING POST ) Y ANEMIA/BLOOD DISORDER Y DIZZINESS Y Gynecological HistoryNo gynecological history recorded. Obstetrics History GPAL:G 0 P 0 0 0 0 Immunizations Vaccine Type Date Status Note Provider Nam e and Address Organization Details Recorded Time TST, unspecified formulation 0 completed Dayanna Flynn, [employer] null, [place] [facility] 12/31/2022 10:27:21 Tdap 0 completed Not Available [facility] 12/12/2022 03:05:42 Influenza, split virus, quadrivalent, PF 8 completed Not Available [facility] 12/12/2022 03:05:42 Influenza, split virus, quadrivalent, preservative 6 completed Not Available [facility] 12/12/2022 03:05:42 Past Encounters Encounter ID Performer Location Encounter Start Date Encounter Closed Date Diagnosis/Indication Diagnosis SNOMED-CT Code Diagnosis ICD10 Code Diagnosis Note [id number] _ATHN_MIGR ATION_1 _ATHENA_M IGRATION_ DEFAULT_1 _1 , 08/22/2020 00:00:00 08/22/2020 12:42:26 [id number] Vero Francis MD [facility] [address] [place] [address] 11/01/2020 00:00:00 11/01/2020 19:35:44 [id number] Vero Francis MD [facility] [address] [address] [facility] [place] [address] 12/25/2020 00:00:00 12/26/2020 06:02:35 [id number] Vero Francis MD [facility] [place] [address] [facility] [place] [address] 05/10/2021 00:00:00 05/11/2021 15:09:33 [id number] Vero Francis MD [facility] [address] [place] [address] 12/30/2021 00:00:00 12/30/2021 19:38:21 [id number] Vero Francis MD [facility] [address] [place] [address] 06/24/2022 00:00:00 06/24/2022 21:03:05 [id number] Vero Francis MD [facility] [address] [facility] [place] [address] 11/26/2022 12:32:39 11/26/2022 13:51:31 Pain of right wrist 4791173820 56238 M25.531 Allergic rhinitis 390269 04 J30.9 Skin irritation 67689877 7 L30.9 Chronic neck pain 923912 8400 107 M54.2 Has done 2 months of PT and no relief. Taking meloxicam and no relief [id number] Vero Francis MD [facility] [address] [facility] [place] [address] 12/31/2022 10:19:42 12/31/2022 10:49:13 Adult health examination 181684763 Z00.00 Form filled out Screening for malignant neoplasm of breast 183774653 Z12.39 Chronic neck pain 187125 4619 107 M54.2 F/u with neurosurge on going to have surgery in 02/23 [id number] Reyes Hebert MD [facility] [address] [facility] [place] [address] 2024 15:23:39 2024 16:27:00 Screening mammography 40020057 Z12.31 Allergic rhinitis 974332 04 J30.9 Anxiety 42924777 F41.9 Adult [facility] examination 625763887 Z00.00 Closed fra cture of ankle 07201663 S82.91XA Crohn's disease 62525027 K50.90 Depressive disorder 3548 9007 F32.A Spinal nigel nosis in cervical region 28984314 M48.02 [id number] Carlos Sainz MD [facility] [address] [place] [address] 03/21/2024 10:41:06 03/21/2024 11:29:02 Pain of right ankle joint 3662941185 2358980 M25.571 Closed fra cture of lateral malleolus of right fibula 5336530284 2545311 S82.64XA [id number] Carlos Sainz MD [facility] [address] [place] [address] [place] [address] 04/07/2024 15:28:01 04/07/2024 16:13:30 Pain of right ankle joint 0708075032 5645360 M25.571 Closed fra cture of lateral malleolus 82834926 S82.64XD [id number] Carlos Sainz MD [facility] [address] [place] [address] [place] [address] 04/21/2024 15:28:56 04/21/2024 16:27:18 Closed fracture of lateral malleolus 10153111 S82.64XD Pain of ri ght ankle joint 8997772124 5112341 M25.571 Health Concerns Section Related Observation LastModified by Organization Detai ls LastModified Time None Recorded Concern Status LastModified by Organization Details LastModified Time None Recorded Advance Directives Directive N: Payers Encounter Date Sequence Insurance Name Policy Number Policy Reyes Covered Member ID Reyes Member ID Guarantor Name 12/31/2022 1 [facility] [id number] Nilam Renee [place] [id number] Nilam M [place] 2024 1 [employer] [id number] Nilam Renee [place] [id number] Nilam Renee [place] 03/21/2024 1 [employer] [id number] Nilam M [place] [id number] Nilam M [place] 04/07/2024 1 [employer] [id number] Nilam M [place] [id number] Nilam Renee [place] 04/21/2024 1 [employer] [id number] Nilam M [place] [id number] Nilam M [place] Notes Date Note Type Note Provider Name and Address Organization Details Recorded Time 12/31/2022 text/html Here today for physical for insurance. Needs a wellness exam. No issues other than neck issues. Going to have neck surgery in 02/23. Last mammogram was years ago. Needs a mammogram. She is UTD with colonoscopy. No need for BW until 06/27. Vero Francis MD [address], [facility] [address], [place], [address], [facility] [address] [facility] 12/31/2022 13:29:41 2024 text/html annual physical for work , fractured right ankle on Mar 13 , in a temporary cast , has crutches ..... LATOYA Amaro [address], [facility] [address], [place], [address], [facility] [employer] [facility] [address] [facility] 2024 16:27:31 03/21/2024 text/html The patient is a 54-year-old female who presents with an injury to her right ankle 8 days ago. The patient was stepping down off a step missed it had an inversion-type injury with immediate pain and swelling laterally in the right ankle. She was unable to bear any weight on it at 1st she did go to the ER where she had x-rays performed. X-rays demonstrate what appears to be a closed acute traumatic nondisplaced fracture through the lateral malleolus. She appears to have an old ligamentous injury with calcification of the ATFL structures, it appears that area has been injured again with the appears to be a nondisplaced crack through the distal medial tip of the lateral malleolus that possibly extends laterally with a cortical disruption of the lateral cortex of the distal fibula as well. I reviewed the x-rays in detail today with the patient I agree with the above findings the ankle mortise is well-maintained. The patient has some bruising mostly laterally little bit medially as well has minimal tenderness medially most of the pain is localized over the lateral gutter and distal fibula. She denies any weakness or loss of motion was not having any pain in the ankle prior to this injury 8 days ago. She has been working on elevation using crutches for support she has gotten to the point where she can now bear full weight on the ankle and is making slow gradual improvement has minimal swelling states the pain is about a 5 on a scale of 1-10. She comes in today for initial evaluation treatment. A new past medical history sheet was reviewed and signed on the intake sheet of today's date drug allergies current medications family social history previous surgical history 10 point review of systems was reviewed and discussed in detail today with the patient. LATOYA Martini [address], [facility] [address], [place], [address], [employer] [facility] [employer] 03/21/2024 11:36:39 04/07/2024 text/html The patient retu rns she had a nondisplaced fracture through the distal portion of the lateral malleolus right ankle. She is now about 3-1/2 weeks status post injury. At 1st she was having quite a bit of pain after her inversion type injury. She missed a step on some stairs had immediate pain laterally in the right ankle. She was unable to bear weight at 1st x-rays showed a closed acute traumatic nondisplaced fracture through the lateral malleolus she also appears to have an old ligamentous injury with calcification of the ATFL structures and a nondisplaced crack through the distal tip of the lateral malleolus that appears to extend laterally with cortical disruption of the lateral cortex of the distal fibula. She is placed in a cam walker boot she has been on work restrictions doing mostly sit-down type duties. She comes in today stating that bearing full weight in the cam walker boot she had no pain she is quite comfortable most of the throbbing aching or gone she has been taking meloxicam elevating her leg and minimizing heavy repetitive activity. She is feeling much better than she had been 2 weeks ago. She comes in today for new x-rays and recheck. LATOYA Martini [address], [facility] [address], [place], [address], [place] 04/07/2024 16:11:50 04/21/2024 text/html patient returns for recheck of her right ankle. She had a nondisplaced fracture through the distal tip of the lateral malleolus after an inversion type injury. She has some spurring off the distal tip of the lateral malleolus due to an old ligamentous injury of the ATFL. The fracture had extended through the medial portion of the lateral malleolus into the lateral cortex of the distal lateral malleolus. Ankle mortise was otherwise well-maintained previously she had some early fracture healing noted. She was placed in a lace-up ankle brace on her last visit she states she has gotten rid of this now because she is feeling very good. She was given a note to return to work full duty beginning this week as long as she was feeling okay. She states she wears high top lace-up leather boots for her job and this gives her good support as well. She is ambulating without pain states she has good range of motion strength and stability no swelling no other symptoms she comes in today for final recheck and final x-rays. LATOYA Martini [address] [facility], [facility] [address], [place], [address], [place] - [facility] 04/21/2024 16:03:36 OBGyn Episode No OBEpisode recorded.
--- OUTSIDE RECORDS SUMMARY | 2024-10-11 16:53 | XMS_ITS | Continuity of Care Document ---
[facility] Organization [facility] Address [address] [place] [address] Phone Care Team Providers Care Radio Message Router Name Role Phone Ron Brice PT Unavailable Unavailable Procedures Procedure Date Progress Note Therapeutic Activities Neuromuscular Re-Ed Therapeutic Exercise Manual Therapy Therapeutic Activities Neuromuscular Re-Ed Therapeutic Exercise Manual Therapy Therapeutic Activities Neuromuscular Re-Ed Therapeutic Exercise Manual Therapy Therapeutic Activities Neuromuscular Re-Ed Therapeutic Exercise Manual Therapy Therapeutic Activities Neuromuscular Re-Ed Therapeutic Exercise Therapeutic Activities Neuromuscular Re-Ed Therapeutic Exercise Manual Therapy Therapeutic Activities Neuromuscular Re-Ed Therapeutic Exercise Therapeutic Activities Neuromuscular Re-Ed Therapeutic Exercise PT Evaluation Low Complexity Therapeutic Activities Therapeutic Exercise Manual Therapy Advance Directives Directive Yes / No Effective Date File Name No Information Encounters Encounter Description Practice Location Reason(s) For Visit Diagnoses Date Provider Providers Copied on Encounter [facility], [place], [place], [id number], [place] tel:[phone] [place] No Information [place] Ron. . [facility], [place], [place], [id number], tel:[phone] [place] No Information [place] Karen. . [facility], [place], [place], [id number], [place] tel:[phone] [place] No Information [place] Ron. . [facility], [place], [place], [id number], tel:[phone] [place] No Information Mod[place]in Ron. . [facility], [place], [place], [id number], [place] tel:[phone] [place] No Information [place] Ron. . [facility], [place], [place], [id number], [place] tel:[phone] [place] No Information [place] Karen. . [facility], [place], [place], [id number], [place] tel:[phone] [place] No Information Mod[place]in Ron. . [facility], [place], [place], [id number], [place] tel:[phone] [place] No Information [place] Ron. . [facility], [place], [place], [id number], [place] tel:[phone] [place] No Information [place] Ron. . Family History Family Member Type Diagnosis Age At Onset No Information Payers Payer name Insurance type Covered democrat ID Baudilio gonzalez(s) [facility] [id number] Social History Type Description Quantity Date Captured Comments Sex Female Smoking Status No Information Chief Complaint And Reason For Visit No Information Reason For Referral Reason For Referral No Information Plan Of Treatment Date Type Action Status Goal Tobacco cessation counseling completed Goal Tobacco Cessation Counseling completed Goal Tobacco Cessation Counseling completed History Of Present Illness Encounter Date Complaint History Of Prese nt Illness No Information Functional Status Date Functional Assessmen t No Information Instructions Date Instruction Additional Infor mation No Information Assessments Type Assessment Date No Information Patient Care Teams Name Effective Dates (start - stop) Status Members No Information
--- OUTSIDE RECORDS SUMMARY | 2024-10-11 16:53 | XMS_ITS | Clinical Summary ---
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 Gender Identity Not on file Sexual Orientation Not on file Plan of Treatment Health Maintenance Due Date Last Done Comments Hepatitis C Virus (HCV) Screening 1968 Hepatitis B Immunization (1 of 3 - 19+ 3-dose series) 1987 Pap Smear 1989 Cervical Cancer Screening (CCS) 1998 HPV/Cotest 1998 Colonoscopy 2013 Colorectal Cancer Screening 2013 Cologuard 2018 Immunochemical Fecal Occult Blood 2018 Mammogram 2018 Pneumococcal Immunization (5 0+ years) (1 of 1 - PCV) 2018 Zoster Immunization (1 of 2) 2018 Influenza Immunization (#1) 01/03/202402/01, 07/01/2017, 03/12/2016 SARS-COV-2 Immunization (2023- season) 2024 07/16/2020, 06/25/2020 Respiratory Syncytial Virus (RSV) Immunization (Adult) (1 - 1-dose 75+ series) 2043 DTaP/Tdap/Td Immunization Discontinued 12/09/2019 TdaP Immunization Completed 12/09/2019 Meningococcal Immunization (ACWY) Aged Out No longer eligible based on patient's age to complete this topic Pneumococcal Immunization Combined Aged Out No longer eligible based on patient's age to complete this topic Rotavirus Immunization Aged Out No lo nger eligible based on patient's age to complete this topic
== END 2024-10-11 15:29 | disposition home or self-care (01) ==
PROVIDERS: PCP Family Medicine; Visit Provider Physician Assistant
DX: Z12.31 Encounter for screening mammogram for malignant neoplasm of breast (principal)
CPT/HCPCS: 77063; 77067